=== PATIENT | female | born 1975 | race Two or more races ===

== ENCOUNTER 2025-01-28 06:40 | Day surgery (SDC) | payer MEDICAID, SELFPAY ==
[2025-01-27 10:32] VITALS: BMI 36.9
[2025-01-27 12:36] LABS: HCG Qualitative,Urine Negative
[2025-01-28] VITALS (9 sets, daily range): BP systolic 124–149; BP diastolic 80–93; PULSE 81–96; RESP 12–18; TEMP 36.2–36.9; O2SAT 95–97; BMI 36.5
[2025-01-28] MEDS: SODIUM CHLORIDE 0.9% 500 ML 500 ML 125 ML IV (07:18)
[2025-01-28] MEDS: fentaNYL CIT INJ 50 mCg/ML AMP 2ML (ASD USE ONLY) IV (07:24)
[2025-01-28] MEDS: DiphenhydrAMINE INJ 50 MG/ML VIAL 25 MG IV (07:24)
[2025-01-28] MEDS: MIDAZOLAM INJ 1 MG/ML VIAL 2 ML (ASD USE ONLY) 2 MG IV (07:26)
== END 2025-01-28 08:45 | disposition home or self-care (01) ==
PROVIDERS: PCP Physician Assistant; Referring Provider Surgery; Visit Provider Surgery
PROC: 0DBE8ZX Excision of Large Intestine, Via Natural or Artificial Opening Endoscopic, Diagnostic (ICD-10-PCS; CPT 45380; principal; 2025-01-28 07:30)
DX: K57.32 Diverticulitis of large intestine without perforation or abscess without bleeding (principal); K57.30 Diverticulosis of large intestine without perforation or abscess without bleeding; Z98.0 Intestinal bypass and anastomosis status
CPT/HCPCS: 45378; 81025; J1200; J2250; J3010; J7040